=== PATIENT | male | born 1975 | race Caucasian/White ===

== ENCOUNTER 2024-11-05 18:45 | Emergency (ER) | payer SELFPAY ==
[2024-11-05 19:10] VITALS: BP 146/84; PULSE 80; RESP 17; TEMP 36.9; O2SAT 98; BMI 34.3
--- NOTE | 2024-11-05 19:21 | XRR_ITS ---
PROCEDURE INFORMATION: Exam: XR Left Hand Exam date and time: 11/05/2024 7:27 PM Age: 49 years old Clinical indication: Pain; Hand; Left; Lac to distal lt 2nd digit TECHNIQUE: Imaging protocol: Radiologic exam of the left hand. Views: 3 or more views. COMPARISON: No relevant prior studies available. FINDINGS: Bones/joints: Laceration to the distal left 2nd digit. Obliquely oriented fracture through the lateral tuft of the 2nd distal phalanx, with amputation of the distal fracture fragment. No other acute osseous abnormality identified. 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 Soft tissues: Normal. XR/XR hand LT min 3V* [id number] IMPRESSION: Laceration to the distal left 2nd digit. Obliquely oriented fracture through the lateral tuft of the 2nd distal phalanx, with amputation of the distal fracture fragment.
--- NOTE | 2024-11-05 19:23 | ED_ITS ---
HPI - Wound/Laceration General: Chief Complaint: Wound/Laceration Stated Complaint: L Finger cut Time Seen by Provider: 11/05/24 19:14 Source: patient Mode of arrival: ambulatory Limitations: no limitations History of Present Illness: 49-year-old male who states that he had cut his left index finger on a table saw roughly 2 hours ago. Does have a laceration to the distal tip bleeding controlled denies any other injuries states tetanus was roughly 6 years ago Associated symptoms: Denies chills, fever(s), nausea or vomiting Related Data Previous Rx's ?Medication ?Instructions ?Recorded cephalexin 500 mg capsule 500 mg PO TID 7 days #21 cap s 11/05/24 Allergies Allergy/AdvReac Type Severity Reaction Status Date / Time No Known Allergies Allergy Verified 11/05/24 19:13 Review of Systems Const: Denies: fever(s), chills, body aches or change in appetite ENMT: Denies: throat pain or dental pain Card: Denies: chest pain Resp: Denies: dyspnea GI: Denies: abdominal pain, nausea, vomiting or diarrhea Musc: Reports: extremity pain; Denies: neck pain or back pain Skin/Breast: Denies: rash Neuro: Denies: headache(s) Physical Exam Const: COMMON NORMALS: no acute distress HENMT: COMMON NORMALS: normocephalic and atraumatic HEAD & SCALP: normocephalic and atraumatic Chest: COMMONS NORMALS: normal inspection of the chest Resp: COMMON NORMALS: normal respiratory effort Extremity: NARRATIVE EXTREMITY EXAM: 3 cm laceration to palmar surface of dis herbert tip of index finger does not involve the nailbed has full range of motion Procedures Laceration Laceration 1: Site: hand Side (If applicable): left Size (cm): 3 Description: linear Depth: simple, single layer Local Anesthetic: bupivacaine 0.5% Amount of anesthesia used (mL): 8 Pre-repair: wound explored, irrigated extensively and deep structures intact Skin layer closed with: nylon Size (cm): 5-0 Number of sutures: 8 Technique: simple, interrupted Course Vital Signs: Vital signs: Vital Signs Temperature 98.4 F 11/05/24 19:10 Pulse Rate 80 11/05/24 19:10 Respiratory Rate 17 11/05/24 19:10 Blood Pressure 146/84 11/05/24 19:10 Pulse Oximetry 98 11/05/24 19:10 Oxygen Delivery Me thod Room Air 11/05/24 19:10 MDM - Wound/Laceration Medical Decision Making Patient presents here with laceration distal tip of his left index finger was irrigated no signs of foreign body did suture the laceration he is to have his sutures removed in [address] on Keflex. Medical Records I reviewed the patient's medical records. XR interpretation done by ED provider, pending radiology final review ED provider radiology interpretation(s): xr hand: no fx or fb Discharge Plan Discharge Patient Disposition: Home Clinical Impression: Finger laceration Qualifiers: Encounter type: initial encounter Finger: index finger Damage to nail status: without damage Foreign body presence: without foreign body Laterality: left Qualified Code(s): S61.211A - Laceration without foreign body of left index finger without damage to nail, initial encounter Condition: Stable Prescriptions: New cephalexin 500 mg capsule 500 mg PO TID 7 Days Qty: 21 0RF Discharge Orders: Discharge ED (Routine); Ordered 11/05/24 Ordered By: Magdaleno Smith Discharge Diet: Advance as tolerated Discharge Activity: Resume usual activity Patient Instructions: Care For Your Stitches (ED), Finger Laceration (ED) Activity Restrictions/Additional Instructions: suture removal in 7 days Print Language: Namibian Coding Level of Care Code ED Loss Prevention Coordinator for Tom Dumont
[2024-11-05] MEDS: tetanus-dipt-pertussis 0.5 mL SDV IM (19:27)
[2024-11-05] MEDS: BUPivacaine 0.5% INJ 10 mL INJECTION (19:32)
[2024-11-05 20:08] VITALS: BP 119/66; PULSE 69; O2SAT 97
== END 2024-11-05 20:10 | disposition home or self-care (01) ==
PROVIDERS: Emergency Provider Emergency Medicine
DX: S61.211A Laceration without foreign body of left index finger without damage to nail, initial encounter (principal); W27.0XXA Contact with workbench tool, initial encounter
CPT/HCPCS: 12002; 73130; 90715; 99283; J3490